=== PATIENT | female | born 1990 | race Hispanic/Latino ===

== ENCOUNTER 2019-12-19 01:11 | Inpatient (IN) | payer OTHER ==
[2019-12-19] VITALS (50 sets, daily range): BP systolic 82–129; BP diastolic 47–83
[~2019-12-19] VITALS: Ht 157.5 cm; Wt 71.2 kg
[2019-12-19] MEDS ORDERED: ONDANSETRON 4MG/2ML VIAL IV ONE (02:15)
[2019-12-19] MEDS ORDERED: PENICILLIN G POTASSIUM IV 5 MU in D5W MINI-BAG PLUS 100 ML IV STA (02:17)
[2019-12-19 02:28] LABS: HEMATOCRIT 36.3 % (36.0-47.0); HEMOGLOBIN 12.4 g/dl (12.0-15.5); MEAN CORPUSCULAR HEMOGLOBIN 30.7 pg (27.0-33.0); MEAN CORPUSCULAR HGB CONC 34.2 g/dl (32.0-36.5); MEAN CORPUSCULAR VOLUME 89.9 fl (80.0-96.0); PLATELET COUNT, AUTOMATED 232 10^3/uL (150-450); RED BLOOD COUNT 4.04 10^6/uL (4.00-5.40); WHITE BLOOD COUNT 11.9 10^3/uL (4.0-10.0)
[2019-12-19] MEDS ORDERED: ONDANSETRON 4MG/2ML VIAL As Ordered ONE (02:32)
--- NOTE | 2019-12-19 02:38 | HPEPDOC ---
Obstetrical History & Physical General Date of Admission December 19, 2019 at 01:55 History of Present Illness patient is a 29 yo @38+2wks gestation presents with regular contractions. Denies LOF/VB. +FM. 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 BREAST: . ABDOMEN: Gravid and non-tender to touch. FETUS: Is vertex (VTX) by sterile vaginal examination (SVE), fetus is vertex (VTX) by Logan. HEART RATE: Regular rate and rhythm. LUNGS: Clear to auscultation (CTA). EXTREMITIES: No edema/erythema/tenderness EFW: 2800gm Pertinent Laboratoy Data Blood Type: A+ RBC Antibody Screen: Negative HIV: Negative Hepatitis B: Negative Rapid Plasma Reagin: Nonreactive Rubella: Immune Varicella: Immune Chlamydia/Gonorrhea: Negative Group B Streptococcus: Positive (OCTOBER 03, 2019) Anatomy Ultrasound Placenta Location: Posterior Vaginal Examination Dilation: 4 cm Effacement: 80% Station: 0 Cervical Consistency: Soft Cervical Position: Posterior Presentation: Cephalic presentation Assessment Heart Rate (FHR): 135 Variability: Moderate Accelerations: Positive Decelerations: None Tocometer Contractions: Yes Frequency: regular, every 1-5 min. Assessment/Plan Assessment patient is a 29 yo @ 38+5wks gestation in active labor. discussed external and internal monitors as needed. Risks of emergent section, infection, bleeding requiring blood transfusion and associated risks, operative vaginal delivery with forceps or vacuum and associated risks, and episiotomy discussed with patient. Plan Admit and orient. 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 Diet: clear Group B Streptococcus (GBS) positive Labs and intravenous (IV) per unit protocol. PCN for GBS prophy. anesthesia consult pelvis proven NIYAH PELAYO DO December 19, 2019 02:38
[2019-12-19] MEDS ORDERED: FENTANYL 2MCG/ML ROPIVACAINE 0.2% IN 0.9% NACL 100ML IVBAG As Ordered ONE (02:57)
[2019-12-19] MEDS ORDERED: EPIDURAL COMMENT XX SCH (03:18)
[2019-12-19] MEDS ORDERED: EPIDURAL/PCA KEYS XX PRN (03:18)
[2019-12-19] MEDS ORDERED: LACTATED RINGER'S 1000 ML IV PRN (03:18)
[2019-12-19] MEDS ORDERED: ePHEDrine SULFATE 25 MG/5 ML(5MG/ML) SYRINGE IV PRN (03:18)
[2019-12-19] MEDS ORDERED: ONDANSETRON 4MG/2ML VIAL IV PRN (03:18)
[2019-12-19] MEDS ORDERED: NALOXONE INJ 0.4MG/1ML VIAL (J2310 PER 1MG) IV PRN (03:18)
[2019-12-19] MEDS ORDERED: FENTANYL/ROPIVACAINE/NACL BAG 100 ML EPIDURAL SCH (03:18)
[2019-12-19] MEDS ORDERED: diphenhydrAMINE 50MG/ML VIAL (J1200) IV PRN (03:18)
[2019-12-19] MEDS ORDERED: REFRIGERATOR IV KEYS XX PRN (03:18)
[2019-12-19] MEDS ORDERED: ePHEDrine SULFATE 25 MG/5 ML(5MG/ML) SYRINGE As Ordered ONE (04:28)
[2019-12-19] MEDS ORDERED: PRENTAB9 PO (05:31)
[2019-12-19] MEDS ORDERED: OXYTOCIN 30 UNITS IN 0.9% NaCl 500ML IV BAG (J2590) As Ordered ONE (06:14)
[2019-12-19] MEDS ORDERED: OXYTOCIN DRIP 30 UNITS in IV 1 EA IV SCH (06:32)
--- NOTE | 2019-12-19 06:42 | DNPDOC ---
[facility] Delivery Note Delivery Note DATE OF DELIVERY: PREDELIVERY DIAGNOSIS: 38+5/7 weeks' gestation and labor. POST DELIVERY DIAGNOSIS: Delivered. 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 Cecilia Tinoco DO ANESTHESIA: epidural ESTIMATED BLOOD LOSS: 250mL. FINDINGS: 6 pound 15 ounce female , Score 9/9. DELIVERY SUMMARY: Called to room after baby delivered on bed. Baby with vigorous cries is on maternal abdomen. Cord clamped x 2 and cut by FOB. Pitocin bolus started. Placenta delivered spontaneously. Fundus massaged firm. Inspection reveals no laceration. Baby and mother bonding when I left the room. DO GITA Tinoco LUAT N. DO December 19, 2019 06:42
[2019-12-19] MEDS ORDERED: IBUPROFEN 800 MG TAB PO PRN (06:45)
[2019-12-19] MEDS ORDERED: MEASLES,MUMPS,RUBELLA VACCINE INJ (MMR-II) (90707) SC SCH (06:45)
[2019-12-19] MEDS ORDERED: RHOGAM 300 MCG (1500 IU) INJ (J2790) IM SCH (06:45)
[2019-12-19] MEDS ORDERED: DIBUCAINE 1% OINTMENT 30GM TOP PRN (06:45)
[2019-12-19] MEDS ORDERED: PENICILLIN G POTASSIUM IV 2.5 MU in IV 1 EA IV SCH (06:45)
[2019-12-19] MEDS ORDERED: ACETAMINOPHEN TAB 650MG DOSE (2X325MG) PO PRN (06:45)
[2019-12-19] MEDS: PRENATAL VITAMINS CHEWABLE TABLET PO SCH (09:00)
[2019-12-20 06:00] VITALS: BP 108/62
--- NOTE | 2019-12-20 08:14 | IPNPDOC ---
Progress Note Date of Service: Dec 20, 2019 Day#: 1 Progress Note SUBJECT: Patient is a 29 yo S/P ppd #1. Patient without concerns tod ay. She has been ambulating, voiding spontaneously without issue and tolerating regular diet. Breast feeding without issue. Reports lochia is like a normal period. Patient was not adequately treated for GBS prior to delivery. Patient plans for nexplanon for contraceptive. OBJECTIVE: VITAL SIGNS: Within normal limits, afebrile. Alert and oriented times three. Abdomen: Fundus firm at U-2. Soft, NTTP. LE: no edema/erythema/tenderness A/P ppd #1, doing well. encourage BF and ambulating. discharge instructions. anticipate d/c home tomorrow. DO cornelia VS, I&O, 24H, Fishbone Vital Signs/I&O Vital Signs Date Time Temp Pulse Resp B/P (MAP) Pulse Ox O2 Delivery O2 Flow Rate FiO2 12/20/19 06:00 98.6 66 16 108/62 (77) I&O- Last 24 Hours up to 6 AM 12/20/19 05:59 Output Total 1050 ml Balance -1050 ml CORNELIA PELAYO DO Dec 20, 2019 08:13
[2019-12-20 09:00] VITALS: BP 108/62
[2019-12-20] MEDS: PRENATAL VITAMINS CHEWABLE TABLET PO SCH (09:18)
[2019-12-20] MEDS: MIRALAX *UNIT DOSE* 17GM PACKET PO SCH ×2 (09:18→21:12)
[2019-12-20 18:00] VITALS: BP 118/71
[2019-12-20] MEDS ORDERED: diphenhydrAMINE 25MG CAP PO PRN (21:45)
--- NOTE | 2019-12-21 06:30 | OBDS ---
[facility] Obstetrical Discharge Sum. Obstetrical Discharge Summary : 3 Term: 3 Pre-term: 0 Abortions: 0 Livin VDRL: Non-Reactive Rh: Positive Rubella: Immune Infant Sex: Male Infant Weight: pounds (6), ounces (15) Anesthesia: Regional Anesthesia A/P, Post Course List any complications Admission diagnosis: labor at 38+5wks gestation Discharge diagnosis: Condition at Discharge: stable Discharge Instructions: Home Activity: as tolerated Diet: regular Medications: filled at [facility] Follow-up: 2 wks Hospital course: Patient admitted for labor at 38+5wks gestation. She progressed to have a spontaneous vaginal delivery. course was uncomplicated with normal lochia, normal urination, ambulation, tolerating a diet, and controlled pain. NIYAH PELAYO DO December 19, 2019 07:46 Shayy Marks MD Dec 20, 2019 13:44
--- NOTE | 2019-12-21 06:30 | IPNPDOC ---
Progress Note Date of Service: Dec 21, 2019 Day#: 2 Progress Note SUBJECT: Patient is a 29-year-old 3 now Para 3 status post uncomplicated spontaneous vaginal delivery with no vaginal laceration and repair, doing well day # 2. She has been ambulating, voiding spontaneously without issue and tolerating regular diet. Breast feeding without issue. Reports lochia is like a normal period. Patient is ambulating well. Reports some cramping with . Denies any pain. OBJECTIVE: VITAL SIGNS: Within normal limits, afebrile. GENERAL: No acute distress HEENT: Mucous membranes are moist BREAST: Nontender, no erythema CARDIOVASCULAR: RRR RESPIRATORY: Bilaterally clear ABDOMINAL EXAMINATION: Soft, appropriate tenderness, nondistended, fundus -2 PERINEUM: Intact, minimal lochia EXTREMITIES: no edema, nontender ASSESSMENT: Patient is a 29-year-old 3 now Para 3 status post uncomplicated spontaneous vaginal delivery with no vaginal laceration and repair, doing well day # 2. Vitals within normal limits, afebrile, hemodynamically stable with no evidence of infection. PLAN: 1. Discharge to home today. 2. Tylenol and Motrin for pain. 3. Encourage breast feeding and ambulation. 4. Routine PP visit in 6 weeks in clinic. 5. Discussed return precautions at length. VS, I&O, 24H, Fishbone Vital Signs/I&O Vital Signs Date Time Temp Pulse Resp B/P (MAP) Pulse Ox O2 Delivery O2 Flow Rate FiO2 12/20/19 09:00 98.6 66 16 108/62 I&O- Last 24 Hours up to 6 AM 12/20/19 06:00 Output Total 1050 ml Balance -1050 ml Shayy Marks MD Dec 20, 2019 13:46
[2019-12-21 06:40] VITALS: BP 107/66
[2019-12-21] MEDS: MIRALAX *UNIT DOSE* 17GM PACKET PO SCH (09:10)
[2019-12-21] MEDS: PRENATAL VITAMINS CHEWABLE TABLET PO SCH (09:10)
== END 2019-12-21 13:30 | disposition home or self-care (01) | DRG 807 ==
LOC: M LDO 01:11 → M LDI 01:55 → M OBS 10:05
PROVIDERS: ADMIT Obstetrics & Gynecology; ATTEND Obstetrics & Gynecology
PROC: 10E0XZZ Delivery of Products of Conception, External Approach (ICD-10-PCS; principal; 2019-12-19)
DX: O99.824 Streptococcus B carrier state complicating childbirth (principal); Z37.0 Single live birth; Z3A.38 38 weeks gestation of pregnancy

== ENCOUNTER → 2020-06-26 | Outpatient (CLI) | payer SELFPAY ==
[~2020-06-26] MED LIST: PRENTAB9 PO
== END ==
LOC: M LABSMTC 14:33
PROVIDERS: ATTEND Pediatrics
DX: Z20.828 Contact with and (suspected) exposure to other viral communicable diseases (principal)